=== PATIENT | female | born 1970 | race Caucasian/White ===

== ENCOUNTER → 2017-01-24 | Outpatient (CLI) | payer OTHER | LOC: RT 12:03 | DX: R55 Syncope and collapse (principal) ==

== ENCOUNTER → 2022-07-09 | Outpatient (CLI) | payer OTHER ==
[~2022-07-09] MED LIST: BUSPAR 10MG10 MG PO; CYMBALTA60 MG PO; GLUCOPHAGE1000 MG PO; HUMALOG MI100 UNIT/2 SQ; HUMALOG100 UNIT/3 SC; HYDROCHLOROTH12.5 MG PO; INVOKANA300 MG PO; JARDIANCE25 MG PO; KLONOPIN0.5 MG PO; LEXAPRO20 MG PO; LIPITOR TAB 1010 MG PO; LOW DOSE ASPIRI81 MG PO; METOPROLOL TART25 MG PO; NEURONTIN400 MG PO; QUETIAPINE FUM100 MG PO; RANEXA500 MG PO; TIZANIDINE HCL2 MG PO; TRESIBA FL100 UNIT/1 SQ; TRESIBA SQ; TRIFLUOPERAZINE1 MG PO; TRULICITY1.5 MG/0.5 SQ; ZOFRAN ODT 4 MG4 MG PO
[2022-07-09 11:51] LABS: BUN/CREATININE RATIO 17 (0-10)
== END ==
LOC: OPSV2 10:00
PROVIDERS: Orthopaedic Surgery
DX: Z01.818 Encounter for other preprocedural examination (principal); M75.101 Unspecified rotator cuff tear or rupture of right shoulder, not specified as traumatic
CPT/HCPCS: 80048; 93005

== ENCOUNTER → 2022-07-23 | Day surgery (SDC) | payer OTHER ==
[~2022-07-23] VITALS: Ht 157.5 cm; Wt 110.9 kg
== END | disposition home or self-care (01) ==
LOC: OR 06:25
DX: M75.101 Unspecified rotator cuff tear or rupture of right shoulder, not specified as traumatic (principal); S43.431A Superior glenoid labrum lesion of right shoulder, initial encounter; M75.51 Bursitis of right shoulder; M75.41 Impingement syndrome of right shoulder; M94.211 Chondromalacia, right shoulder; M65.811 Other synovitis and tenosynovitis, right shoulder; G89.18 Other acute postprocedural pain; E11.9 Type 2 diabetes mellitus without complications; F41.9 Anxiety disorder, unspecified; F32.A Depression, unspecified; Z79.82 Long term (current) use of aspirin; Z79.4 Long term (current) use of insulin; Z79.899 Other long term (current) drug therapy; X58.XXXA Exposure to other specified factors, initial encounter
CPT/HCPCS: 82962; C1713; J0171; J0690; J1100; J1885; J2001; J2405; J2704; J2710; J2795